=== PATIENT | female | born 1955 | race Caucasian/White ===

== ENCOUNTER → 2016-10-20 | Outpatient (CLI) | payer OTHER ==
[~2016-10-20] MED LIST: AUGM875T27 PO; CLAR10CA3 PO; GASTROGRAFIN SOLUTION 30ML (Q9963) As Ordered ONE; IMIT100T PO; ISOVUE-370 76% 100ML VIAL (Q9967) As Ordered ONE; LIPI20TA PO; MULTTAB26 PO; MYLI40DR PO; NEUR600T PO; PROBCAP4 PO; PROZ20CA11 PO; ROXI1TAB2 PO; SYNT100T PO; TYLE325T5 PO
--- NOTE | 2016-10-21 05:38 | REP ---
Clinical: Right lower quadrant pain and tenderness. Technique: Axial contrast enhanced images from the lung bases to the pubic symphysis using oral and 100 ml Isovue 370 intravenous contrast material with precontrast images of the abdomen as well as coronal and sagittal re-formations. Findings: Lung bases are clear. Liver, spleen, pancreas, gallbladder, bilateral adrenal glands and kidneys are normal. The enteric system is without obstruction or acute inflammatory process. Evidence for prior appendectomy is noted. Sigmoid diverticula appreciated without acute diverticulitis. Pelvis demonstrates normal bladder and evidence for prior hysterectomy. No pelvic fluid or ascites. No intraperitoneal or retroperitoneal adenopathy. Vascular structures are normal. No free air. No hernia identified. Musculoskeletal structures are intact. Impression: No acute intra-abdominal or pelvic pathology appreciated. No evidence for hernia. Diverticulosis without acute diverticulitis. Signed by Fernando Salamanca MD 10/21/2016 05:29 A
== END ==
LOC: M RAD 16:17
PROVIDERS: ATTEND Physician Assistant
DX: R10.31 Right lower quadrant pain (principal); K57.30 Diverticulosis of large intestine without perforation or abscess without bleeding
CPT/HCPCS: 74178; Q9963; Q9967

== ENCOUNTER → 2016-12-26 | Outpatient (REF) | payer OTHER ==
[~2016-12-26] MED LIST changes: -GASTROGRAFIN SOLUTION 30ML (Q9963) As Ordered ONE; -ISOVUE-370 76% 100ML VIAL (Q9967) As Ordered ONE
== END ==
LOC: M LAB REF 16:57
PROVIDERS: ATTEND Internal Medicine
DX: D51.9 Vitamin B12 deficiency anemia, unspecified (principal)

== ENCOUNTER 2017-01-23 17:00 | Emergency (ER) | payer OTHER ==
[~2017-01-23] VITALS: Ht 167.6 cm; Wt 81.6 kg
[2017-01-23] MEDS ORDERED: MONT10TA2 (17:20)
[2017-01-23] MEDS ORDERED: LEVO112T2 (17:20)
[2017-01-23] MEDS ORDERED: VITA50003 (17:20)
[2017-01-23] MEDS ORDERED: ESCI20TA (17:20)
[2017-01-23] MEDS ORDERED: ATOR40TA (17:20)
[2017-01-23] MEDS ORDERED: AMOX/K (17:20)
[2017-01-23] MEDS ORDERED: ASPIRIN 81 MG CHEW TABLET PO ONE (18:00)
[2017-01-23] MEDS: NITROGLYCERIN 0.4 MG SUBL TABLET SL PRN ×3 (18:01→18:23)
[2017-01-23 18:15] LABS: BASO % 0.6 % (0.0-1.0); EOS # 0.1 K/mm3 (0.0-0.50); EOS % 1.9 % (0.0-3.0); LARGE UNSTAINED CELL # 0.2 K/mm3 (0.0-0.4); LARGE UNSTAINED CELL % 2.4 % (0.0-4.0); LYMPH # 2.1 K/mm3 (1.5-4.5); LYMPH % 32.9 % (24.0-44.0); MEAN CORPUSCULAR HEMOGLOBIN 29.5 pg (27.0-33.0); MEAN CORPUSCULAR HGB CONC 34.7 g/dl (32.0-36.5); MONO # 0.5 K/mm3 (0.0-0.8); MONO % 7.9 % (0.0-5.0); NEUTROPHILS # 3.3 K/mm3 (1.8-7.7); NEUTROPHILS % 54.2 % (36.0-66.0); PLATELET COUNT, AUTOMATED 196 k/mm3 (150-450); RED CELL DISTRIBUTION WIDTH 12.3 % (11.5-14.5)
[2017-01-23 18:18] LABS: INR 0.93
[2017-01-23 18:23] VITALS: BP 135/76
[2017-01-23 18:23] LABS: ALBUMIN 4.1 GM/DL (3.2-5.2); ALBUMIN/GLOBULIN RATIO 1.41 (1.00-1.93); ALKALINE PHOSPHATASE 96 U/L (45-117); ALT/SGPT 46 U/L (12-78); ANION GAP 8 MEQ/L (8-16); AST/SGOT 24 U/L (15-37); BILIRUBIN,DIRECT 0.1 MG/DL (0.0-0.2); BILIRUBIN,TOTAL 0.5 MG/DL (0.2-1.0); BLOOD UREA NITROGEN 19 MG/DL (7-18); CALCIUM LEVEL 8.4 MG/DL (8.8-10.2); CARBON DIOXIDE LEVEL 26 MEQ/L (21-32); CHLORIDE LEVEL 106 MEQ/L (98-107); CREATININE FOR GFR 0.81 MG/DL (0.55-1.02); GLOMERULAR FILTRATION RATE > 60.0 (>45); GLUCOSE, FASTING 94 MG/DL (80-110); POTASSIUM SERUM 3.6 MEQ/L (3.5-5.1); SODIUM LEVEL 140 MEQ/L (136-145)
--- NOTE | 2017-01-23 18:32 | REP ---
CHEST, SINGLE VIEW: There is no evidence of acute infiltrate. No pleural effusion is seen. The heart is normal in size. The mediastinal silhouette is unremarkable. The visualized osseous structures are intact. IMPRESSION: No acute pulmonary disease. Signed by Nayan Joe MD 01/23/2017 08:14 P
[2017-01-23] MEDS ORDERED: ISOVUE-370 76% 100ML VIAL (Q9967) As Ordered ONE (19:06)
[2017-01-24 00:48] VITALS: BP 123/68
--- NOTE | 2017-01-24 09:13 | ECGEPIP ---
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
--- NOTE | 2017-01-24 09:21 | ECGEPIP ---
Stationary ECG Study [facility] - ED Test Date: 2017-01-23 Pat Name: ADRIAN RODRIGUEZ Department: Room: - Gender: F [employer]: ConleyB: 1955 Requested By: SOHA Burroughs Order Number: [id number] Reading MD: Iker Song Measurements Intervals [place] Rate: 48 P: 49 [place]: 160 QRS: 7 QRSD: 86 T: 66 QT: 458 QTc: 413 Interpretive Statements SINUS BRADYCARDIA SIMILAR TO PRIOR ON SAME DATE Electronically Signed On 01-24-2017 9:21:10 EDT by Iker Song
--- NOTE | 2017-01-24 14:30 | REP ---
Clinical: Acute chest pain. Technique: Axial contrast enhanced images from the thoracic inlet to the upper abdomen using 100 ml Isovue 370 intravenous contrast material with coronal and sagittal re-formations. Findings: Satisfactory enhancement of the pulmonary vasculature is achieved and no filling defects are identified to suggest pulmonary embolus. Thoracic aorta is normal caliber without aneurysm or dissection. Heart and pericardium are normal. Bilateral lung fonseca are well aerated and clear without acute pulmonary parenchymal consolidation or atelectasis. No nodule or mass lesion. No pleural effusion/reaction. No pneumothorax. No adenopathy. Impression: No evidence for pulmonary embolus. No acute pleuroparenchymal or mediastinal process. Signed by Fernando Salamanca MD 01/24/2017 02:20 P
== END 2017-01-24 00:48 | disposition home or self-care (01) ==
LOC: M ED 18:05
DX: R07.9 Chest pain, unspecified (principal); G43.909 Migraine, unspecified, not intractable, without status migrainosus; F41.9 Anxiety disorder, unspecified; F32.9 Major depressive disorder, single episode, unspecified; E78.5 Hyperlipidemia, unspecified; D51.0 Vitamin B12 deficiency anemia due to intrinsic factor deficiency; Z87.891 Personal history of nicotine dependence; Z82.49 Family history of ischemic heart disease and other diseases of the circulatory system; R00.1 Bradycardia, unspecified; Z79.899 Other long term (current) drug therapy
CPT/HCPCS: 36415; 71010; 71275; 80048; 80076; 82550; 82553; 83690; 85025; 85610; 85730; 93005; 93041; 94760; 99285; Q9967

== ENCOUNTER → 2017-02-06 | Outpatient (CLI) | payer OTHER ==
[~2017-02-06] MED LIST changes: +AMOX/K; +ATOR40TA; +ESCI20TA; +LEVO112T2; +MONT10TA2; +VITA50003
--- NOTE | 2017-02-06 10:16 | REPMRS ---
Patient History The patient states she has not had a clinical breast exam in over a year. Patient is nulliparous. Family history of breast cancer in mother at age 50 or over. Reductions of both breasts, 1990. Took hormonal contraceptives for 10 years. Took unspecified hormones for 4 years. Digital Woman Screen Mammo: February 06, 2017 - Exam #: [id number] Bilateral CC and MLO view(s) were taken. Technologist: Aundrea Dutton, Technologist Prior study comparison: January 08, 2016, bilateral digital mammo screening bilat, performed at [facility]. August 21, 2014, bilateral bilat screen digital mammo, performed at [facility] ([facility]). FINDINGS: There are scattered fibroglandular densities. There has been no change in the appearance of the mammogram from the prior studies. There is a mild amount of residual fibroglandular tissue which is fairly symmetric. There is no interval development of dominant mass, architectural distortion, or clustered microcalcification suggestive of malignancy. ASSESSMENT: BI-RADS/ACR category 1 mammogram. Negative. Recommendation Routine screening mammogram in 1 year (for women over age 40). This mammogram was interpreted with the aid of an FDA-approved computer-aided dectection system. Electronically Signed By: Nayan Joe MD 02/06/17 1016
--- NOTE | 2017-02-07 11:36 | DEXA ---
AP SPINE L1 - L4 1.193 0.0 0.7 LT FEMUR TOTAL 1.064 0.4 1.0 RT FEMUR TOTAL 1.102 0.8 1.4 TOTAL BODY TOTAL OTHER DUAL FEMUR FRAX* ASSESSMENT Risk factors: History of adult fracture, possible premature menopause. 10 year probability of fracture Major osteoporotic fracture 10.4 % Hip fracture 0.2 % COMMENTS: Normal bone densitometry of the spine and hips. The decreased density of the spine does not represent a significant change. The decreased density of the left hip does represent a significant change. The decreased density of the right hip does represent a significant change. The density of the spine has decreased 11.7% since the initial exam on 2002. The spine density has decreased 1.2% since the most recent exam on 08/02/2013. The density of the left hip has decreased 9.0% since the initial exam on 2002. The density of the left hip has decreased 5.3% since the most recent exam on 10/2012. The density of the right hip has decreased 5.5% since the initial exam on 2002. The density of the right hip has decreased 2.0% since the most recent exam on . FOLLOW-UP: Recommendation for the next bone density exam: 5 years. LEDA
== END ==
LOC: M WHC 07:57
PROVIDERS: ATTEND Internal Medicine
DX: Z12.31 Encounter for screening mammogram for malignant neoplasm of breast (principal); M85.9 Disorder of bone density and structure, unspecified; Z92.0 Personal history of contraception
CPT/HCPCS: 77080; G0202

== ENCOUNTER → 2017-02-08 | Outpatient (CLI) | payer OTHER ==
--- NOTE | 2017-02-09 19:52 | ECGEPIP ---
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
== END ==
LOC: M EKG 09:22
PROVIDERS: ATTEND Orthopaedic Surgery
DX: Z01.810 Encounter for preprocedural cardiovascular examination (principal); R00.1 Bradycardia, unspecified

== ENCOUNTER 2018-03-05 11:08 | Outpatient (RCR) | payer OTHER | END 2018-03-31 | LOC: M OT 03-13 09:00 | DX: Z47.89 Encounter for other orthopedic aftercare (principal); S52.532D Colles' fracture of left radius, subsequent encounter for closed fracture with routine healing | CPT/HCPCS: 97110 ==

== ENCOUNTER 2018-04-05 08:09 | Outpatient (RCR) | payer OTHER | END 2018-05-01 | LOC: M OT 08:09 | DX: Z51.89 Encounter for other specified aftercare (principal); S52.532D Colles' fracture of left radius, subsequent encounter for closed fracture with routine healing ==

== ENCOUNTER 2018-05-03 10:34 | Emergency (ER) | payer OTHER ==
[2018-05-03] MEDS: NS 1,000 ML IV (11:36)
[2018-05-03 11:39] LABS: BASO % 0.4 % (0.0-1.0); EOS % 0.1 % (0.0-3.0); HEMATOCRIT 47.9 % (36.0-47.0); HEMOGLOBIN 16.3 g/dl (12.0-15.5); IMMATURE GRANULOCYTE % 0.4 % (0-3.0); LYMPH # 0.9 10^3/uL (1.5-4.5); LYMPH % 8.4 % (24.0-44.0); MEAN CORPUSCULAR HEMOGLOBIN 29.4 pg (27.0-33.0); MEAN CORPUSCULAR VOLUME 86.5 fl (80.0-96.0); MONO # 0.3 10^3/uL (0.0-0.8); MONO % 3.4 % (0.0-5.0); NEUTROPHILS # 8.8 10^3/uL (1.8-7.7); NEUTROPHILS % 87.3 % (36.0-66.0); PLATELET COUNT, AUTOMATED 201 10^3/uL (150-450); RED BLOOD COUNT 5.54 10^6/uL (4.00-5.40); RED CELL DISTRIBUTION WIDTH 12.1 % (11.5-14.5); WHITE BLOOD COUNT 10.1 10^3/uL (4.0-10.0)
[2018-05-03] MEDS: METOCLOPRAMIDE INJ 10MG/2ML VIAL (J2765) IV (11:48)
[2018-05-03] MEDS: KETOROLAC 30 MG/ML VIAL (J1885) IV (11:49)
[2018-05-03] MEDS: DICYCLOMINE INJ 20MG/2ML (J0500) IM (11:49)
[2018-05-03] MEDS ORDERED: GASTROGRAFIN SOLUTION 30ML (Q9963) As Ordered (11:54)
[2018-05-03] MEDS: GASTROGRAFIN SOLUTION 30ML PO ×2 (12:02→12:28)
[2018-05-03 12:04] LABS: ALBUMIN/GLOBULIN RATIO 1.03 (1.00-1.93); ALKALINE PHOSPHATASE 100 U/L (45-117); ALT/SGPT 43 U/L (12-78); AMYLASE 48 U/L (25-115); ANION GAP 9 MEQ/L (8-16); AST/SGOT 25 U/L (7-37); BILIRUBIN,DIRECT 0.1 MG/DL (0.0-0.2); BILIRUBIN,TOTAL 0.6 MG/DL (0.2-1.0); BLOOD UREA NITROGEN 24 MG/DL (7-18); C REACTIVE PROTEIN QUANTITATIV < 0.30 MG/DL (0.00-0.30); CALCIUM LEVEL 9.3 MG/DL (8.8-10.2); CARBON DIOXIDE LEVEL 26 MEQ/L (21-32); CHLORIDE LEVEL 105 MEQ/L (98-107); GLOMERULAR FILTRATION RATE > 60.0 (>45); GLUCOSE, FASTING 118 MG/DL (70-100); LIPASE 120 U/L (73-393); SODIUM LEVEL 140 MEQ/L (136-145); TOTAL PROTEIN 7.9 GM/DL (6.4-8.2)
[2018-05-03 12:04] LABS: LACTIC ACID SEPSIS PROTOCOL 1.9 MMOL/L (0.4-2.0)
[2018-05-03] MEDS ORDERED: ISOVUE-370 76% 100ML VIAL (Q9967) As Ordered (13:04)
[2018-05-03 13:08] LABS: APPEARANCE, URINE CLEAR (CLEAR); BACTERIA, URINE AUTO NEGATIVE (NEGATIVE); BILIRUBIN, URINE AUTO NEGATIVE (NEGATIVE); BLOOD, URINE BLOOD NEGATIVE (NEGATIVE); COLOR, URINE YELLOW (YELLOW); GLUCOSE, URINE (UA) AUTO NEGATIVE (NEGATIVE); KETONE, URINE AUTO NEGATIVE (NEGATIVE); LEUKOCYTE ESTERASE, URINE AUTO NEGATIVE (NEGATIVE); NITRITE, URINE AUTO NEGATIVE (NEGATIVE); PROTEIN, URINE AUTO NEGATIVE (NEGATIVE); RBC, URINE AUTO 1 /HPF (0-3); SPECIFIC GRAVITY URINE AUTO 1.019 (1.002-1.035); SQUAMOUS EPITHELIAL CELL UR AU 0 /HPF (0-6); UROBILINOGEN, URINE AUTO 0.2 mg/dL (0.0-2.0); WBC, URINE AUTO 0 /HPF (0-3)
== END 2018-05-03 14:28 | disposition home or self-care (01) ==
LOC: M ED 10:34
DX: K52.9 Noninfective gastroenteritis and colitis, unspecified (principal); G43.909 Migraine, unspecified, not intractable, without status migrainosus; E03.9 Hypothyroidism, unspecified; F41.9 Anxiety disorder, unspecified; K57.30 Diverticulosis of large intestine without perforation or abscess without bleeding; Z79.899 Other long term (current) drug therapy
CPT/HCPCS: J0500

== ENCOUNTER → 2018-06-14 | Outpatient (REF) | payer OTHER ==
[2018-06-14 19:26] LABS: URIC ACID 6.4 MG/DL (2.6-6.0)
[2018-06-14 19:26] LABS: C REACTIVE PROTEIN QUANTITATIV 0.41 MG/DL (0.00-0.30); RHEUMATOID FACTOR QUANT < 10.0 IU/ML (<15.0)
[2018-06-14 19:35] LABS: BASO % 0.7 % (0.0-1.0); EOS # 0.2 10^3/uL (0.0-0.50); HEMATOCRIT 46.5 % (36.0-47.0); HEMOGLOBIN 15.7 g/dl (12.0-15.5); IMMATURE GRANULOCYTE % 0.5 % (0-3.0); LYMPH # 1.6 10^3/uL (1.5-4.5); LYMPH % 27.6 % (24.0-44.0); MEAN CORPUSCULAR HEMOGLOBIN 28.9 pg (27.0-33.0); MEAN CORPUSCULAR HGB CONC 33.8 g/dl (32.0-36.5); MEAN CORPUSCULAR VOLUME 85.5 fl (80.0-96.0); MONO # 0.6 10^3/uL (0.0-0.8); MONO % 10.3 % (0.0-5.0); NEUTROPHILS # 3.2 10^3/uL (1.8-7.7); NEUTROPHILS % 57.9 % (36.0-66.0); PLATELET COUNT, AUTOMATED 197 10^3/uL (150-450); RED BLOOD COUNT 5.44 10^6/uL (4.00-5.40); RED CELL DISTRIBUTION WIDTH 12.3 % (11.5-14.5); WHITE BLOOD COUNT 5.6 10^3/uL (4.0-10.0)
[2018-06-14 20:56] LABS: ERYTHROCYTE SEDIMENTATION RATE 12 mm/hr (0-30)
== END ==
LOC: M LABDRAW1 17:37
DX: M51.36 Other intervertebral disc degeneration, lumbar region (principal)

== ENCOUNTER → 2018-06-18 | Outpatient (CLI) | payer OTHER | LOC: M RAD 15:13 | DX: Z12.31 Encounter for screening mammogram for malignant neoplasm of breast (principal); N60.31 Fibrosclerosis of right breast; N60.32 Fibrosclerosis of left breast ==

== ENCOUNTER → 2018-08-07 | Outpatient (REF) | payer OTHER ==
[2018-08-07 14:52] LABS: INR 1.01; PROTHROMBIN TIME 13.4 SECONDS (12.1-14.4)
== END ==
LOC: M LABDRAW1 13:48
DX: D69.1 Qualitative platelet defects (principal); Z79.01 Long term (current) use of anticoagulants

== ENCOUNTER → 2018-11-02 | Outpatient (REF) | payer OTHER ==
[~2018-11-02] MED LIST changes: -ATOR40TA; +ATOR40TA75; -AUGM875T27 PO; +AUGM875T28 PO; +BUSP10TA PO; +CIPR-249 PO; +FLAG500T PO; +MONT10TA2 PO; +NORC1TAB4 PO; -VITA50003; +VITA50005; +ZOFR4TAB14 PO
== END ==
LOC: M LABDRAW1 15:39
PROVIDERS: ATTEND Physical Medicine & Rehabilitation
DX: Z01.812 Encounter for preprocedural laboratory examination (principal)

== ENCOUNTER → 2018-11-20 | Outpatient (CLI) | payer OTHER ==
[~2018-11-20] MED LIST changes: +CONRAY-43 43% 50ML VIAL (Q9960) As Ordered ONE; +LIDOCAINE 1% MDV 20ML VIAL As Ordered ONE; +methylPREDNISolone SUSP 40 MG/ML (DEPO-medrol) VIAL (J1030) As Ordered ONE
--- NOTE | 2018-11-20 17:50 | REP ---
LEFT SHOULDER INJECTION The procedure was performed under the direct supervision of Dr. Bullock. The benefits and risks including but not limited to pain infection bleeding and anaphylaxis were explained to the patient and informed consent was obtained. The left glenohumeral joint space was localized using fluoroscopic guidance. The skin was prepped and draped in a sterile fashion. 1% lidocaine was used as a local anesthetic. Using fluoroscopic guidance a 22-gauge needle was inserted and advanced into the joint. 0.5 ml of Conray 43 was injected to verify placement. 5 ml of a solution containing 3 ml of 1% lidocaine and 2 ml of Depo-Medrol 40 mg injected. The needle was then removed. The patient tolerated the procedure well and there were no immediate complications. Less than 6 seconds of fluoroscopy time was utilized for this procedure. Reviewed by GELA Hampton 11/20/2018 05:36 P Electronically Signed by Christopher Bullock MD 11/20/2018 05:40 P
== END ==
LOC: M RADPRO 14:02
PROVIDERS: ATTEND Physician Assistant Surgical
DX: S46.012D Strain of muscle(s) and tendon(s) of the rotator cuff of left shoulder, subsequent encounter (principal)
CPT/HCPCS: 20610; 77002; J1030; Q9960

== ENCOUNTER → 2019-02-08 | Outpatient (CLI) | payer OTHER ==
[~2019-02-08] MED LIST changes: -CONRAY-43 43% 50ML VIAL (Q9960) As Ordered ONE; -LIDOCAINE 1% MDV 20ML VIAL As Ordered ONE; -NORC1TAB4 PO; +NORC1TAB7 PO; -methylPREDNISolone SUSP 40 MG/ML (DEPO-medrol) VIAL (J1030) As Ordered ONE
--- NOTE | 2019-02-11 14:59 | DEXA ---
AP SPINE L1 - L4 1.270 0.6 2.1 LT FEMUR TOTAL 1.070 0.5 1.6 LT NECK 1.080 0.3 1.7 RT FEMUR TOTAL 1.083 0.6 1.7 RT NECK 1.057 0.1 1.5 TOTAL BODY TOTAL OTHER COMMENTS: Normal bone densitometry of the spine and hips. The density of the spine has decreased 6.0% since the initial exam on 10/16/2002. The spine density has increased 6.5% since the most recent exam on 02/06/2017. The density of the left hip has decreased 8.5% since the initial exam on 10/16/2002. The density of the left hip has increased 0.6% since the most recent exam on 02/06/2017. The density of the right hip has decreased 7.1% since the initial exam on 10/16/2002. The density of the right hip has decreased 1.7% since the most recent exam on 02/06/2017. FOLLOW-UP: Recommendation for the next bone density exam: 5 years. LEDA
== END ==
LOC: M WHC 08:02
PROVIDERS: ATTEND Internal Medicine Rheumatology
DX: Z29.8 Encounter for other specified prophylactic measures (principal)

== ENCOUNTER → 2019-06-25 | Outpatient (CLI) | payer OTHER ==
[2019-06-25 17:46] LABS: BLOOD UREA NITROGEN 18 MG/DL (7-18); CREATININE FOR GFR 0.84 MG/DL (0.55-1.30); GLOMERULAR FILTRATION RATE > 60.0 (>45)
== END ==
LOC: M LAB 16:53
PROVIDERS: ATTEND Physician Assistant
DX: M47.817 Spondylosis without myelopathy or radiculopathy, lumbosacral region (principal)

== ENCOUNTER → 2019-06-27 | Outpatient (REF) | payer OTHER | LOC: M SFHCPLAZ 18:32 | PROVIDERS: ATTEND Dermatology | DX: D23.71 Other benign neoplasm of skin of right lower limb, including hip (principal) ==

== ENCOUNTER → 2019-07-01 | Outpatient (CLI) | payer OTHER ==
--- NOTE | 2019-07-01 10:40 | REPMRS ---
Patient History The patient states she has not had a clinical breast exam in over a year. Family history of breast cancer at age 50 or over in mother. Reductions of both breasts, 1991. Took hormonal contraceptives for 10 years. Took unspecified hormones for 4 years. 3D TOMOSYNTHESIS WAS PERFORMED. The Anjali Rodriguez lifetime risk for breast cancer is 17.5%. Digital Mammo Screening Bilat: July 01, 2019 - Exam #: [id number] Bilateral CC and MLO view(s) were taken. Technologist: Whit Tineo, Technologist Prior study comparison: June 18, 2018, bilateral digital mammo screening bilat performed at [facility]. February 06, 2017, digital woman screen mammo, performed at [facility]. FINDINGS: The breast tissue is heterogeneously dense. This may lower the sensitivity of mammography. There has been no change in the appearance of the mammogram from the prior studies. There is a moderate amount of residual fibroglandular tissue which is fairly symmetric. There is no interval development of dominant mass, areas of architectural distortion, or clustered microcalcification typical of malignancy. Assessment: BI-RADS/ACR category 1 mammogram. Negative Mammogram. Recommendation Routine screening mammogram in 1 year (for women over age 40). This mammogram was interpreted with the aid of an FDA-approved computer-aided dectection system. Electronically Signed By: Nayan Joe MD 07/01/19 7720
== END ==
LOC: M RAD 09:10
PROVIDERS: ATTEND Internal Medicine
DX: Z12.31 Encounter for screening mammogram for malignant neoplasm of breast (principal); Z92.0 Personal history of contraception

== ENCOUNTER → 2019-11-13 | Outpatient (REF) | payer OTHER ==
[~2019-11-13] MED LIST changes: -MONT10TA2; -MONT10TA2 PO; +MONT10TA4; +MONT10TA4 PO
[2019-11-13 17:35] LABS: IRON (FE) 102 UG/DL (50-170); PERCENT SATURATION 35.4 % (13.2-45.0); TOTAL IRON BINDING CAPACITY 288 UG/DL (250-450)
[2019-11-13 17:38] LABS: H PYLORI QUALITATIVE IgG NEGATIVE (NEGATIVE)
== END ==
LOC: M LAB REF 16:34
PROVIDERS: ATTEND Internal Medicine
DX: R10.13 Epigastric pain (principal); K92.1 Melena

== ENCOUNTER → 2019-12-16 | Outpatient (REF) | payer OTHER | LOC: M LAB REF 12:48 | PROVIDERS: ATTEND Internal Medicine | DX: M79.10 Myalgia, unspecified site (principal) ==

== ENCOUNTER → 2020-03-01 | Outpatient (CLI) | payer OTHER ==
--- NOTE | 2020-03-09 10:30 | SLEEPCENT ---
DATE OF STUDY: 03/01/2020 ORDERED BY: Tamica Zhou Nocturnal polysomnography was performed for evaluation of sleep physiology in this patient with history of excessive somnolence and nonrestorative sleep. 7 hours and 31 minutes of data were reviewed. There were 361 minutes of sleep identified. Sleep latency was prolonged at 48.5 minutes. REM latency was prolonged at 312 minutes. Sleep architecture showed fragmentation and poor progression. Overall sleep efficiency was 80.5%. The patient's electrocardiogram showed a sinus rhythm with an average heart rate of 54 beats per minute. Electroencephalogram (EEG) showed normal waveforms for awake and sleep. There were 106 respiratory events identified of 10 seconds in duration or greater for an apnea-hypopnea index of 17.6. The events were not exclusive to sleep stage nor body posture. Arousals from respiratory events occurred 2.5 times per hour and oxygen desaturations were seen into the 80s. There was some activity in the limb EMG leads, but limb movement arousal index was only 3.5. IMPRESSION: Obstructive sleep apnea syndrome (G4 7.33). Apnea-hypopnea index 17.6. RECOMMENDATION: The patient should be encouraged to return to the sleep disorder center for pressure therapy. In the interim alcohol and sedative avoidance should be practiced and caution exercised during the operation of motor vehicles.
== END ==
LOC: M SLEEP 20:00
PROVIDERS: ATTEND Nurse Practitioner Adult Health
DX: G47.33 Obstructive sleep apnea (adult) (pediatric) (principal)

== ENCOUNTER → 2020-04-14 | Outpatient (CLI) | payer MEDICARE, OTHER ==
[~2020-04-14] MED LIST changes: +AMLO25TA PO; +PERCOCET PO; +SIMV10TA21 PO; +VITA50005 PO
--- NOTE | 2020-04-22 16:03 | SLEEPCENT ---
DATE OF PROCEDURE: 04/14/2020 ORDERED BY: Tamica Zhou NP Nocturnal polysomnography was performed for the titration of pressure therapy in this patient with obstructive sleep apnea syndrome. Apnea-hypopnea index of 17.6. For testing the patient was fit with a ResMed AirFit F20 full-face mask of medium size; 4 cm of water pressure were applied to the circuit and the lights were extinguished. 7 hours and 28 minutes of data were reviewed. There were 367.5 minutes of sleep identified. Sleep latency was prolonged at 43.5 minutes. Rapid eye movement (REM) latency was prolonged at 270.5 minutes. Sleep architecture improved late in the study and there was one long REM cycle. Overall sleep efficiency was 83%. The patient's electrocardiogram showed a sinus rhythm with an average heart rate of 48 beats minute. Rate ranged 40-65. Electroencephalogram (EEG) showed normal waveforms for awake and sleep. Respiratory events were fully palliated with CPAP at a pressure of +7. Significant activity was noted in the limb leads. Limb movement arousal index was 8.8. IMPRESSION: Obstructive sleep apnea syndrome (G47.33). RECOMMENDATIONS: Nightly use of pressure therapy 7 cm of water.
== END ==
LOC: M SLEEP 20:00
PROVIDERS: ATTEND Nurse Practitioner Adult Health
DX: G47.33 Obstructive sleep apnea (adult) (pediatric) (principal)

== ENCOUNTER → 2020-04-20 | Outpatient (CLI) | payer SELFPAY | LOC: M LABSMTC 13:12 | PROVIDERS: ATTEND Pediatrics | DX: Z20.828 Contact with and (suspected) exposure to other viral communicable diseases (principal); Z11.59 Encounter for screening for other viral diseases ==

== ENCOUNTER → 2020-06-11 | Outpatient (CLI) | payer MEDICARE, OTHER ==
--- NOTE | 2020-07-02 06:59 | REP ---
CHEST X-RAY: CLINICAL: Ptosis of the breast. TECHNIQUE: PA and lateral COMPARISON: 01/23/17 FINDINGS: Mediastinum and cardiac silhouette are normal. Lung fonseca are clear. No consolidation, effusion or pneumothorax. Skeletal structures are intact. IMPRESSION: Normal chest x-ray. No acute cardiopulmonary process or focal consolidation. MTDD
== END ==
LOC: M RAD 13:59
PROVIDERS: ATTEND Plastic Surgery Surgery of the Hand
DX: N62 Hypertrophy of breast (principal); N64.81 Ptosis of breast

== ENCOUNTER → 2020-06-20 | Outpatient (CLI) | payer MEDICARE, OTHER | LOC: M LABSMTC 09:39 | PROVIDERS: ATTEND Anesthesiology | DX: Z01.818 Encounter for other preprocedural examination (principal); Z20.828 Contact with and (suspected) exposure to other viral communicable diseases | CPT/HCPCS: C9803; U0003 ==

== ENCOUNTER 2020-06-25 07:16 | Day surgery (SDC) | payer MEDICARE, OTHER ==
[~2020-06-25] VITALS: Ht 165.1 cm; Wt 79.4 kg
[~2020-06-25 07:16] MED LIST changes: +LR 1,000 ML IV ONE; -PERCOCET PO; +ceFAZolin SOD 1 GM in D5W MINI-BAG PLUS 50 ML IV ONE; +ceFAZolin SOD 2 GM in IV 1 EA IV ONE
[2020-06-25] MEDS ORDERED: ceFAZolin 1GM VIAL (J0690 PER 500MG) As Ordered ONE (08:25)
[2020-06-25] MEDS ORDERED: ROCURONIUM BROMIDE 50 MG/5 ML VIAL As Ordered ONE ×2 (08:47→10:50)
[2020-06-25] MEDS ORDERED: ONDANSETRON 4MG/2ML VIAL As Ordered ONE (08:47)
[2020-06-25] MEDS ORDERED: propofoL 200 MG/20 ML VIAL As Ordered ONE (08:47)
[2020-06-25] MEDS ORDERED: LIDOCAINE 2% 100MG/5ML SDV (FOR ANES.) As Ordered ONE (08:47)
[2020-06-25] MEDS ORDERED: MIDAZOLAM INJ 2MG/2ML VIAL (J2250 PER 1MG) As Ordered ONE (08:48)
[2020-06-25] MEDS ORDERED: fentaNYL 250 MCG/5 ML INJECTION (J3010) As Ordered ONE (08:48)
[2020-06-25] MEDS ORDERED: dexameTHASONE 4 MG/ML 1ML VIAL (J1100 PER 1MG) As Ordered ONE (08:48)
[2020-06-25] MEDS ORDERED: BUPIVACAINE LIPOSOME/PF 1.3% 20ML VIAL (13.3MG/ML)(EXPAREL)(C9290 PER1MG) As Ordered ONE (09:17)
[2020-06-25] MEDS ORDERED: BACITRACIN PWD 50,000 UNITS VIAL As Ordered ONE (09:17)
[2020-06-25] MEDS ORDERED: EPINEPHrine INJ 1 MG/ML 1ML AMP As Ordered ONE (09:17)
[2020-06-25] MEDS ORDERED: LIDOCAINE 1% MDV 20ML VIAL As Ordered ONE (09:17)
[2020-06-25] MEDS ORDERED: SEVOFLURANE INHAL SOLN 250 ML BTL As Ordered ONE (09:18)
[2020-06-25] MEDS ORDERED: ePHEDrine SULFATE 25 MG/5 ML(5MG/ML) SYRINGE As Ordered ONE ×2 (10:21→11:38)
[2020-06-25] MEDS ORDERED: PHENYLephrine HCL 500 MCG/5 ML (100MCG/ML) SYRINGE (J2370) As Ordered ONE (10:36)
[2020-06-25] MEDS ORDERED: HYDROmorphone HCL 2 MG/ML 1ML VIAL (J1170) As Ordered ONE (10:51)
[2020-06-25] MEDS ORDERED: ACETAMINOPHEN 1000MG 100ML IV BTL (OFIRMEV) (J0131 PER 10MG) As Ordered ONE (10:51)
[2020-06-25] MEDS ORDERED: SUGAMMADEX SODIUM 500 MG/5 ML VIAL (BRIDION) As Ordered ONE (12:26)
[2020-06-25] MEDS ORDERED: LABETALOL 100MG/20ML VIAL As Ordered ONE (13:24)
--- NOTE | 2020-06-25 13:34 | POST-OPPD ---
Postoperative Procedure Note Date Of Procedure: Jun 25, 2020 PREOPERATIVE DIAGNOSIS: Bilateral breast hypertrophy POSTOPERATIVE DIAGNOSIS: same FINDINGS: large breasts. PROCEDURE: Secondary bilateral breast reduction SURGEON: Dr Thurston ANESTHESIA: General SPECIMENS: Right breast 402gm, left breast 387gm ESTIMATED BLOOD LOSS: 150cc REPLACED: none DRAINS: 10 mm BRIAN x 2 COMPLICATIONS: none POSTOPERATIVE CONDITION: stable Dictation [id number] VITOR THURSTON DO Jun 25, 2020 13:34
[2020-06-25] MEDS ORDERED: ONDANSETRON 4MG/2ML VIAL IV PRN ×2 (13:45→14:00)
[2020-06-25] MEDS ORDERED: MORPHINE 4 MG/ML 1ML VIAL/SYRINGE (J2270) IV PRN (13:45)
[2020-06-25] MEDS ORDERED: oxyCODONE 5MG TAB PO PRN (14:00)
[2020-06-25] MEDS ORDERED: fentaNYL 100 MCG/2 ML INJECTION (J3010) IV PRN (14:00)
[2020-06-25] MEDS ORDERED: HYDROMORPHONE HCL 0.5 MG/ 0.5 ML SYRINGE (J1170 PER 1) IV PRN (14:00)
[2020-06-25] MEDS ORDERED: LR 1,000 ML IV SCH ×2 (14:00)
[2020-06-25 15:00] VITALS: BP 112/61
[2020-06-25] MEDS: PERCOCET 5MG/325MG TAB PO PRN ×2 (15:19→22:00)
[2020-06-25] MEDS: ACETAMINOPHEN TAB 650MG DOSE (2X325MG) PO PRN (18:15)
[2020-06-25 20:00] VITALS: BP 105/54
[2020-06-25] MEDS ORDERED: SIMVASTATIN 10 MG TAB PO SCH (21:00)
[2020-06-26 01:28] VITALS: BP 107/55
[2020-06-26 06:00] VITALS: BP 101/57
[2020-06-26] MEDS ORDERED: LEVOTHYROXINE 112MCG TABLET (0.112MG) PO SCH (06:00)
[2020-06-26] MEDS: PERCOCET 5MG/325MG TAB PO PRN ×2 (06:58→13:46)
[2020-06-26] MEDS ORDERED: ESCITALOPRAM OXALATE 10 MG TAB (LEXAPRO) PO SCH (09:00)
[2020-06-26 09:14] VITALS: BP 101/57
[2020-06-26 10:00] VITALS: BP 96/57
--- NOTE | 2020-06-26 11:13 | IPNPDOC ---
Subjective General Date Seen: Jun 26, 2020 Subject Chief Complaint/History The patient is a 65-year-old female admitted with a reason for visit of Bilateral Breast Hypertrophy. Doing well this morning. Pain controlled with Percocet. Ambulating. Tolerating diet. Current Medications Current Medications Current Medications Medications (Trade) Dose Ordered Sig/Clarissa Route PRN Reason Start Time Stop Time Status Last Admin Dose Admin Acetaminophen (Tylenol Tab) 650 mg Q6H PRN PO MILD PAIN (PS 1-4) 06/25/20 13:45 06/25/20 18:15 Amlodipine Besylate (Norvasc) 2.5 mg DAILY PO 06/25/20 09:00 06/26/20 09:14 Escitalopram Oxalate (Lexapro) 20 mg DAILY PO 06/26/20 09:00 06/26/20 09:20 Fentanyl Citrate (Sublimaze) 25 mcg Q5MP PRN IV PAIN LEVEL 5-10 06/25/20 14:00 06/25/20 14:50 DC Hydromorphone HCl (Dilaudid) 0.2 mg Q5MP PRN IV PAIN LEVEL 4-7 06/25/20 14:00 06/25/20 14:50 DC Lactated Ringer's 1,000 ml @ 75 mls/hr [id number] IV 06/25/20 14:00 06/25/20 18:41 DC 06/25/20 15:03 Lactated Ringer's 1,000 ml @ 100 mls/hr Q10H IV 06/25/20 14:00 06/25/20 14:50 DC Levothyroxine Sodium (Synthroid) 112 mcg DAILY@06 PO 06/26/20 06:00 06/26/20 05:15 Morphine Sulfate (Morphine Sulfate Inj) 4 mg Q4HP PRN IV SEVERE PAIN (PS 8-10) 06/25/20 13:45 Ondansetron HCl (ZOFRAN INJection) 4 mg Q4H PRN IV NAUSEA OR VOMITING 06/25/20 13:45 06/25/20 15:17 Ondansetron HCl (ZOFRAN INJection) 4 mg Q4HP PRN IV NAUSEA OR VOMITING 06/25/20 14:00 06/25/20 14:50 DC Oxycodone HCl (Roxicodone, Oxyir) 5 mg ASDIRECTED PRN PO PAIN LEVEL 1-4 06/25/20 14:00 06/25/20 14:50 DC Oxycodone/ Acetaminophen (Percocet 5mg/ 325mg Tablet) 2 tab Q6HP PRN PO SEVERE PAIN (PS 8-10) 06/25/20 13:45 06/26/20 06:58 Simvastatin (Zocor) 10 mg QPM PO 06/25/20 21:00 Allergies Coded Allergies: No Known Allergies (Unverified , 01/17/14) Objective Physical Examination Examination GENERAL APPEARANCE:Patient seen, laying in bed, awake, alert, and oriented. Comfortable, in no acute distress. SKIN: Warm and moist. BREAST: Right and left soft, non-tender incisions intact. BRIAN drains: 20/25 cc/24 hr. NAC: Viable, warm, symmetrical, mild post-op ecchymosis, no expanding hematoma. HEENT: Normocephalic, atraumatic. [place] palpebral conjunctiva, anicteric sclerae. Lips and mucosa appear moist. NECK: Supple, no thyromegaly. No obvious jugular venous distention. LUNGS: Clear to auscultation bilaterally. No wheezing appreciated. HEART: No chest wall abnormalities. Regular rate and rhythm with no murmurs appreciated. ABDOMEN: Abdomen is soft, non-tender, non-distended. EXTREMITIES: No edema identified. No calf tenderness. Vital Signs Vital Signs Date Time Temp Pulse Resp B/P (MAP) Pulse Ox O2 Delivery O2 Flow Rate FiO2 06/26/20 09:14 70 101/57 06/26/20 07:30 16 06/26/20 06:00 97.3 97 Nasal Cannula 2.0 I&Os I&O- Last 24 Hours up to 6 AM 06/26/20 05:59 Intake Total 2920 ml Output Total 45 ml Balance 2875 ml Laboratory Data Labs 24H Laboratory Tests 2 06/26/20 09:07: Impression S/p bilateral breast reduction. Stable for discharge Pain controlled. Monitor the drains. Incentive spirometry Ambulate F/up plastic surgery Plan / VTE VTE Prophylaxis Ordered?: Yes VITOR THURSTON DO Jun 26, 2020 11:13
[2020-06-26] MEDS ORDERED: PERCOCET PO (11:17)
[2020-06-26] MEDS: ACETAMINOPHEN TAB 650MG DOSE (2X325MG) PO PRN (12:27)
[2020-06-26 14:00] VITALS: BP 97/56
[2020-06-26 14:40] VITALS: BP 110/60
--- NOTE | 2020-07-06 10:00 | RO ---
DATE OF OPERATION: 06/25/2020 PREOPERATIVE DIAGNOSIS: Bilateral breast hypertrophy. POSTOPERATIVE DIAGNOSIS: Bilateral breast hypertrophy. PROCEDURE: Secondary bilateral breast reduction. ATTENDING SURGEON: Dr. Katie Sandoval ANESTHESIA: General. SPECIMENS: Right breast, 402 grams, left breast, 387 grams. BLOOD LOSS: 150 mL. No replacement. DRAINS: Two 10 mm Alek-Flower drains. COMPLICATIONS: None. POSTOPERATIVE CONDITION: Stable. DESCRIPTION OF PROCEDURE: This is a 65-year-old female who had breast reduction about 30 years ago. Now she has grown larger breast, and they are causing significant upper back pain. She is scheduled for secondary bilateral breast reduction. Risks, benefits, and alternatives were discussed with the patient in detail, and she is ready to proceed. The day of surgery, she was marked in the upright position, and she was brought into the operating room and placed in the supine position. Preoperative antibiotics were given. Sequentials placed on the lower calves. She was prepped and draped in the usual sterile fashion. We started our procedure on the right side. Her nipple areolar complex was good size; however, we did reassign it to be at 45 mm in diameter, and the patient was marked according superior medial pedicle. We started our incision by scoring the nipple areolar complex area, and then dissection was continued until the inferior lateral portion of the breast was resected. Hemostasis was obtained using electrocautery, and then the tissue went to pathology. The pedicle was de- epithelialized using Lynch scissors, and then it was irrigated. We used Exparel for local anesthesia to infiltrate in the pectoralis muscle as well as the breast tissue, and then the tissue was turned superiorly at its new location at 21 cm from sternal notch, and initially it was at 26.5 on the right side. The mound was re-created using 0 Vicryls, and then the pillars were closed with interrupted 3-0 Monocryl sutures. The vertical limb was 8 cm. Excess tissue inferiorly was measured and resected, creating the horizontal scar. Nipple area complex was brought into view through the new opening and sutured in place with 3-0 and 4-0 Monocryl sutures and a 5-0 plain. A 10 mm Alek-Flower drain was placed through the lateral portion of the horizontal incision. Then we turned our attention to the left side. Mirror procedure was carried out. Again, resection was done according to superior-medial pedicle. Hemostasis obtained. The pedicle was in good viable condition. Exparel was infiltrated through the pectoralis muscle and the breast tissue. Pillars were closed with interrupted 3- 0 Monocryl sutures. The vertical incision was 8 cm. Inferior excess skin is measured and resected, creating the horizontal scar. A 10 mm Alek-Flower drain placed through the lateral portion of that incision. Continued closing with interrupted 3-0 sutures. Nipple areolar complex brought into the view through the separate incision for the new opening at 21 cm from sternal notch, and the left side was initially at 27.5 cm. Then it was closed in layers with 3-0 and 4- 0 Monocryl sutures and a 5-0 plain running suture. Then lateral chest was contoured using suction-assisted lipectomy bilaterally to reduce amount of excess lipodystrophy that she had. Then Prineo dressing, Xeroform on the nipples, and a bulky dressing were applied with a surgical wrap. Patient was extubated in the operating room without difficulty and was transferred to the recovery room in stable condition. LEDA
== END 2020-06-26 15:15 | disposition home or self-care (01) ==
LOC: EEVIPCON 07:16 → M SDC 07:16 → M MS5PR 14:50 → M SDC 06-26 15:15
PROVIDERS: ATTEND Plastic Surgery Surgery of the Hand
DX: N62 Hypertrophy of breast (principal); E03.9 Hypothyroidism, unspecified; F41.9 Anxiety disorder, unspecified; R51 Headache; G47.33 Obstructive sleep apnea (adult) (pediatric); Z79.899 Other long term (current) drug therapy
CPT/HCPCS: 19318; 87641; 88300; 88305; 96374; C9290; J0131; J0171; J0690; J1100; J1170; J2250; J2370; J2405; J3010

== ENCOUNTER → 2020-10-21 | Outpatient (CLI) | payer MEDICARE, OTHER ==
[~2020-10-21] MED LIST changes: -ESCI20TA; +ESCI20TA16; -LR 1,000 ML IV ONE; +MONT10TA10; +MONT10TA10 PO; -MONT10TA4; -MONT10TA4 PO; +PERCOCET PO; -ceFAZolin SOD 1 GM in D5W MINI-BAG PLUS 50 ML IV ONE; -ceFAZolin SOD 2 GM in IV 1 EA IV ONE
--- NOTE | 2020-10-21 12:04 | REP ---
INDICATION: KLAUS SCR MAMMO. COMPARISON: 07/01/2019 as well as other prior exams. TECHNIQUE: MLO and CC views performed bilaterally with tomosynthesis. FINDINGS: Moderate heterogeneous fibroglandular tissue is present bilaterally. Reportedly patient underwent breast reduction surgery 06/25/2020. On the right there is no suspicious mass identified. There are coarse benign type calcifications present. On the left focal spiculated masslike density is seen in the region of 3 o'clock with approximate diameter 2.6 cm. There is architectural distortion extending anteriorly and superiorly from that region into the 12 o'clock region. There are coarse benign type calcifications present in the left breast. The Volpara volumetric breast density pattern is B. IMPRESSION: BIRADS/ACR category 0, incomplete. New spiculated mass density in the left breast somewhat posteriorly at the 3 o'clock position, approximate diameter 2.6 cm. Irregular architectural distortion extends anteriorly and superiorly from 3 o'clock to the 12 o'clock region of the left breast. I suspect this represents postsurgical change. However, further evaluation is recommended with spot compression views and ultrasound. This patient's Tyrer-Cuzick lifetime breast cancer risk assessment score is 16.8%. This mammogram was interpreted with the aid of an FDA-approved computer-aided detection system. The patient states she had a clinical breast exam in April 2020. The patient letter being requested is M0. RECOMMENDATION: Recommend spot compression views and ultrasound left breast. <Electronically signed by Nayan Joe > 10/21/20 1200
== END ==
LOC: M WHC 11:02
PROVIDERS: ATTEND Internal Medicine
DX: R92.2 Inconclusive mammogram (principal); N63.21 Unspecified lump in the left breast, upper outer quadrant

== ENCOUNTER → 2020-11-02 | Outpatient (CLI) | payer MEDICARE, OTHER ==
[~2020-11-02] MED LIST changes: -MONT10TA10; -MONT10TA10 PO; +MONT5TAB2; +MONT5TAB2 PO
--- NOTE | 2020-11-02 16:43 | REP ---
INDICATION: ADDITIONAL VIEWS LT BREAST. Patient underwent bilateral reduction mammoplasty this past summer in the interval since the prior mammography. COMPARISON: Comparison mammography 21 October 2020 was BI-RADS category 0. TECHNIQUE: Magnified focal spot-compression CC, mL, and MLO views of the left breast are obtained. A true mL with 3D tomography is acquired. Targeted left breast sonography is performed. This mammogram was interpreted with the aid of an FDA-approved computer-aided detection system. FINDINGS: Diagnostic mammography confirms the presence of a elliptical-shaped soft tissue mass with spiculated margins in the left breast laterally at approximately the 3 o'clock position. This is 2.0 cm in greatest diameter. In addition, there is another focal area of spiculation in the superior left breast at approximately 12 o'clock position. There are a grouping of benign calcifications in the lateral aspect of the left breast as well. No malignant type microcalcifications are observed. Left breast mammography is otherwise unremarkable. . Targeted ultrasound: Targeted sonography of the left breast is performed. Heterogeneous fibroglandular background echotexture is seen. At the 12 o'clock position, 3 cm from the nipple there is hypoechoic spiculated area with shadowing 1.5 x 3.2 x 1.7 cm in diameter. In the left breast in the 3 o'clock position, 5 cm from the nipple there is a hypoechoic oval-shaped structure measuring 2.2 x 3.6 x 1.7 cm. This is anechoic and avascular and is associated with shadowing as well. Both of these areas are nonspecific but most compatible with postoperative scarring and hematoma seroma is suspected at the 3 o'clock lesion. IMPRESSION: BIRADS/ACR category 3 probably benign left breast mammographic and sonographic findings. Findings most compatible with postoperative fibrosis and hematoma seroma formation. This patient's Tyrer-Cuzick lifetime breast cancer risk assessment score is 16.8%. RECOMMENDATION: Repeat left breast mammography and focused left breast sonography in 6 months is recommended.. The patient letter being requested is M1. <Electronically signed by Damaso Flores > 11/02/20 1640
== END ==
LOC: M WHC 13:19
PROVIDERS: ATTEND Internal Medicine
DX: R92.2 Inconclusive mammogram (principal); N63.20 Unspecified lump in the left breast, unspecified quadrant; R92.1 Mammographic calcification found on diagnostic imaging of breast

== ENCOUNTER → 2021-05-10 | Outpatient (CLI) | payer MEDICARE, OTHER ==
[~2021-05-10] MED LIST changes: +ERGO500029 PO; +ISOVUE-300 61% 50ML VIAL As Ordered ONE; +LIDOCAINE 1% MDV 20ML VIAL As Ordered ONE; +MONT10TA97; +MONT10TA97 PO; -MONT5TAB2; -MONT5TAB2 PO; -VITA50005 PO; +methylPREDNISolone SUSP 40MG/ML 1ML VIAL (DEPO MEDROL) As Ordered ONE
== END ==
LOC: M RADPRO 11:17
PROVIDERS: ATTEND Physician Assistant Surgical
DX: M19.012 Primary osteoarthritis, left shoulder (principal)
CPT/HCPCS: 20610; 77002; J1030; Q9967

== ENCOUNTER → 2021-06-10 | Outpatient (CLI) | payer MEDICARE, OTHER ==
[~2021-06-10] MED LIST changes: -ISOVUE-300 61% 50ML VIAL As Ordered ONE; -LIDOCAINE 1% MDV 20ML VIAL As Ordered ONE; +MONT10TA10; +MONT10TA10 PO; -MONT10TA97; -MONT10TA97 PO; -methylPREDNISolone SUSP 40MG/ML 1ML VIAL (DEPO MEDROL) As Ordered ONE
--- NOTE | 2021-06-10 11:21 | REP ---
INDICATION: CAT 3 6 MON FOLLOW UP L BREAST. COMPARISON: Multiple TECHNIQUE: Digital mammography left breast CC and MLO projections with true lateral and spot compression views were obtained FINDINGS: The asymmetric density seen in the left breast outer quadrant has gotten smaller although spiculations persist. The 2nd more central area of internal architectural distortion is less dense and less apparent. Benign calcifications are again noted. IMPRESSION: BIRADS/ACR category 2 benign findings. Once again, there is evidence of postoperative scarring but has improved as described above. This mammogram was interpreted with the aid of an FDA-approved computer-aided detection system. The patient letter being requested is M1. RECOMMENDATION: Repeat screening mammography recommended 1 year (for women over 40). <Electronically signed by Pineda Kumar > 06/10/21 0582
== END ==
LOC: M WHC 09:54
PROVIDERS: ATTEND Internal Medicine
DX: N64.89 Other specified disorders of breast (principal)
CPT/HCPCS: 77065; G0279

== ENCOUNTER → 2021-12-21 | Outpatient (CLI) | payer MEDICARE, OTHER ==
[~2021-12-21] MED LIST changes: -MONT10TA10; -MONT10TA10 PO; +MONT10TA97; +MONT10TA97 PO
== END ==
LOC: M WHC 12:38
PROVIDERS: ATTEND Internal Medicine
DX: Z12.31 Encounter for screening mammogram for malignant neoplasm of breast (principal)

== ENCOUNTER → 2022-09-16 | Outpatient (CLI) | payer MEDICARE, OTHER ==
[~2022-09-16] MED LIST changes: +**SFHN** TRIAMCINOLONE ACETONIDE SUSP 40 MG/ML 1ML VIAL ONE; +ROPIvacaine 0.5% 30ML VIAL ONE
== END ==
LOC: M PLAIMG 15:00
PROVIDERS: ATTEND Orthopaedic Surgery
DX: M19.012 Primary osteoarthritis, left shoulder (principal)
CPT/HCPCS: 20610; 76000; J2795; J3301

== ENCOUNTER → 2022-12-22 | Outpatient (CLI) | payer MEDICARE, OTHER ==
[~2022-12-22] MED LIST changes: -**SFHN** TRIAMCINOLONE ACETONIDE SUSP 40 MG/ML 1ML VIAL ONE; -ROPIvacaine 0.5% 30ML VIAL ONE
== END ==
LOC: M WHC 11:01
PROVIDERS: ATTEND Internal Medicine
DX: Z12.31 Encounter for screening mammogram for malignant neoplasm of breast (principal)

== ENCOUNTER → 2022-12-28 | Outpatient (CLI) | payer MEDICARE, OTHER ==
[~2022-12-28] MED LIST changes: +ISOVUE-300 61% 100ML VIAL ONE; +LIDOCAINE 1% MDV 20ML VIAL ONE; +ROPIvacaine 0.5% 30ML VIAL ONE; +TRIAMCINOLONE ACETONIDE SUSP 40MG/ML 1ML VIAL ONE
== END ==
LOC: M PLAIMG 15:32
PROVIDERS: ATTEND Orthopaedic Surgery
DX: M19.012 Primary osteoarthritis, left shoulder (principal)
CPT/HCPCS: 20610; 77002; J2795; J3301; Q9967

== ENCOUNTER → 2023-03-10 | Outpatient (CLI) | payer MEDICARE, OTHER ==
[~2023-03-10] MED LIST changes: -ISOVUE-300 61% 100ML VIAL ONE; -LIDOCAINE 1% MDV 20ML VIAL ONE; -ROPIvacaine 0.5% 30ML VIAL ONE; -TRIAMCINOLONE ACETONIDE SUSP 40MG/ML 1ML VIAL ONE
== END ==
LOC: M WHC 10:36
PROVIDERS: ATTEND Internal Medicine
DX: M81.0 Age-related osteoporosis without current pathological fracture (principal)

== ENCOUNTER → 2023-06-14 | Outpatient (CLI) | payer MEDICARE, OTHER ==
[2023-06-14 18:43] LABS: PLATELET COUNT, AUTOMATED 169 10^3/uL (150-450)
== END ==
LOC: M PLALAB 16:24
PROVIDERS: ATTEND Physician Assistant
DX: M19.012 Primary osteoarthritis, left shoulder (principal)

== ENCOUNTER → 2023-06-16 | Outpatient (REF) | payer MEDICARE, OTHER ==
[2023-06-16 13:56] LABS: INR 1.01; PARTIAL THROMBOPLASTIN TIME 30.7 SECONDS (24.8-34.2)
== END ==
LOC: M LABDRAWP 13:11
PROVIDERS: ATTEND Physician Assistant
DX: M19.012 Primary osteoarthritis, left shoulder (principal)

== ENCOUNTER → 2023-08-17 | Outpatient (REF) | payer MEDICARE, OTHER ==
[2023-08-17 16:58] LABS: APPEARANCE, URINE CLEAR (CLEAR); BACTERIA, URINE AUTO NEGATIVE (NEGATIVE); BILIRUBIN, URINE AUTO NEGATIVE (NEGATIVE); BLOOD, URINE BLOOD NEGATIVE (NEGATIVE); COLOR, URINE YELLOW (YELLOW); GLUCOSE, URINE (UA) AUTO NEGATIVE (NEGATIVE); KETONE, URINE AUTO NEGATIVE (NEGATIVE); LEUKOCYTE ESTERASE, URINE AUTO NEGATIVE (NEGATIVE); NITRITE, URINE AUTO NEGATIVE (NEGATIVE); PROTEIN, URINE AUTO NEGATIVE (NEGATIVE); RBC, URINE AUTO 2 /HPF (0-3); SPECIFIC GRAVITY URINE AUTO 1.015 (1.002-1.035); SQUAMOUS EPITHELIAL CELL UR AU 1 /HPF (0-6); UROBILINOGEN, URINE AUTO 0.2 mg/dL (0.0-2.0); WBC, URINE AUTO 0 /HPF (0-3)
[2023-08-17 17:17] LABS: INR 1.04; PROTHROMBIN TIME 13.3 SECONDS (12.5-14.5)
== END ==
LOC: M LAB REF 16:30
PROVIDERS: ATTEND Internal Medicine
DX: Z01.818 Encounter for other preprocedural examination (principal); Z79.899 Other long term (current) drug therapy; Z79.1 Long term (current) use of non-steroidal anti-inflammatories (NSAID)

== ENCOUNTER → 2023-12-25 | Outpatient (CLI) | payer MEDICARE, OTHER | LOC: M WHC 08:04 | PROVIDERS: ATTEND Internal Medicine | DX: Z12.31 Encounter for screening mammogram for malignant neoplasm of breast (principal) ==

== ENCOUNTER → 2024-08-12 | Outpatient (REF) | payer MEDICARE, OTHER | LOC: M LAB REF 17:48 | PROVIDERS: ATTEND Internal Medicine | DX: R19.4 Change in bowel habit (principal) ==

== ENCOUNTER 2024-09-18 12:09 | Day surgery (SDC) | payer MEDICARE, OTHER ==
[~2024-09-18] VITALS: Ht 165.1 cm; Wt 82.8 kg
[~2024-09-18 12:09] MED LIST changes: -LEVO112T2; +LEVO112T2 PO; +LEXA1TAB2 PO; +LIVA2TAB PO
[2024-09-18] MEDS ORDERED: LIDOCAINE 2% 100MG/5ML SDV (FOR ANES.) As Ordered ONE (13:55)
[2024-09-18] MEDS ORDERED: propofoL 200 MG/20 ML VIAL As Ordered ONE (13:55)
[2024-09-18] MEDS ORDERED: GLUCAGON INJ 1MG VIAL As Ordered ONE (14:45)
[2024-09-18 15:14] VITALS: TEMP 97.6
[2024-09-18 15:30] VITALS: BP 107/51; O2SAT 95
== END 2024-09-18 15:36 | disposition home or self-care (01) ==
LOC: M OPP 12:09
PROVIDERS: ATTEND Internal Medicine Gastroenterology
DX: Z12.11 Encounter for screening for malignant neoplasm of colon (principal); K64.0 First degree hemorrhoids; K57.30 Diverticulosis of large intestine without perforation or abscess without bleeding; I10 Essential (primary) hypertension; E78.5 Hyperlipidemia, unspecified; E03.9 Hypothyroidism, unspecified; F41.9 Anxiety disorder, unspecified; G43.909 Migraine, unspecified, not intractable, without status migrainosus; G47.33 Obstructive sleep apnea (adult) (pediatric); Z99.89 Dependence on other enabling machines and devices; Z79.890 Hormone replacement therapy; Z79.899 Other long term (current) drug therapy
CPT/HCPCS: 45380; J1610

== ENCOUNTER → 2024-12-30 | Outpatient (CLI) | payer MEDICARE, OTHER | LOC: M WHC 10:04 | PROVIDERS: ATTEND Internal Medicine | DX: Z12.31 Encounter for screening mammogram for malignant neoplasm of breast (principal) ==

== ENCOUNTER → 2025-02-20 | Outpatient (CLI) | payer MEDICARE, OTHER | LOC: M WHC 11:33 | PROVIDERS: ATTEND Internal Medicine | DX: N83.202 Unspecified ovarian cyst, left side (principal); N32.89 Other specified disorders of bladder; Z90.710 Acquired absence of both cervix and uterus ==

== ENCOUNTER → 2025-08-07 | Outpatient (REF) | payer MEDICARE, OTHER | LOC: M LAB REF 17:35 | PROVIDERS: ATTEND Internal Medicine | DX: G62.9 Polyneuropathy, unspecified (principal) ==

== ENCOUNTER → 2025-09-05 | Outpatient (CLI) | payer MEDICARE, OTHER ==
[~2025-09-05] MED LIST changes: +PROHANCE 279.3MG/ML 15ML VIAL ONE
== END ==
LOC: M PLAIMG 09:59
PROVIDERS: ATTEND Otolaryngology
DX: H90.3 Sensorineural hearing loss, bilateral (principal)
CPT/HCPCS: 70553; A9579